=== PATIENT | male | born 1990 | race Caucasian/White ===

== ENCOUNTER 2018-04-13 00:34 | Emergency (ER) | payer OTHER ==
[~2018-04-13] VITALS: Ht 170.2 cm; Wt 87.7 kg
[~2018-04-13 00:34] MED LIST: DOXYCYCLINE 10100 MG PO; MULTI VITAMINS1 TAB PO; PREDNISONE10 MG PO
[2018-04-13 00:36] VITALS: TEMP 98.2
[2018-04-13] MEDS ORDERED: PREDNISONE20 MG PO (02:31)
[2018-04-13 02:40] VITALS: BP 120/70; PULSE 54
[2018-04-13] MEDS ORDERED: [UNRECOGNIZED DRUG - REMARK] (03:06)
== END 2018-04-13 02:40 | disposition home or self-care (01) ==
LOC: COL.ER 00:34
DX: T78.1XXA Other adverse food reactions, not elsewhere classified, initial encounter (principal); F17.210 Nicotine dependence, cigarettes, uncomplicated; Z88.0 Allergy status to penicillin; Z90.89 Acquired absence of other organs
CPT/HCPCS: J1200; J2930